=== PATIENT | male | born 1985 | race Caucasian/White ===

== ENCOUNTER → 2016-12-17 | Outpatient (REF) ==
[~2016-12-17] MED LIST: ANTI-INFLAMATORY; CEPHALEXIN500 M1 PO; LISINOPRIL10 MG PO
== END ==
LOC: WSOH 08:53
DX: Z02.89 Encounter for other administrative examinations (principal)
CPT/HCPCS: G0463

== ENCOUNTER → 2017-06-15 | Outpatient (REF) | LOC: WSOH 11:13 | DX: Z02.89 Encounter for other administrative examinations (principal) ==